=== PATIENT | female | born 1980 | race Two or more races ===

== ENCOUNTER 2017-01-15 14:18 | Emergency (ER) | payer MEDICAID ==
--- NOTE | 2017-01-20 21:28 | ER ---
ADMIT: 01/15/2017 RM/LOC: ER [facility] MR#: [id number] [place], [place] [id number] ROBERTS, FABIOLA [address] [place] [address] Emergency Room Report SEX: F AGE: 36 : 1980 DATE: 01/15/2017 CHIEF COMPLAINT: Cough, short of breath. HISTORY OF PRESENT ILLNESS: The patient is a 36-year-old female, who had some URI symptoms last week which are mostly resolved but she still has a dry cough and still feels short of breath. It is worse with exertion. She has had to use an albuterol inhaler in the past. She denies any chest pain, not having any fevers. No nausea or vomiting. No change in bowel or bladder function. PAST MEDICAL HISTORY: Unremarkable. MEDICATIONS: None. ALLERGIES: NONE. SOCIAL HISTORY: Denies smoking or drug use. Does use alcohol socially. PHYSICAL EXAMINATION: VITAL SIGNS: Blood pressure is 143/77, pulse 84, respirations 20, temp 98.6, sats 97% on room air. HEAD: Atraumatic. NECK: Supple. Posterior oropharynx is patent. No erythema. No exudates. HEART: Regular rate and rhythm. LUNGS: Very mild wheezes bilaterally. Decent air movement. ABDOMEN: The patient is morbidly obese. EXTREMITIES: The patient moves all extremities. No pedal edema. No calf tenderness. EMERGENCY DEPARTMENT COURSE: She did have some mild wheezes and we gave her a breathing treatment and her symptoms were better. Plan at this time is to get her albuterol MDI to use as needed for shortness of breath and cough as really only symptoms are her mild shortness of breath and wheezes. No other workup done at this time. She is to follow up with her primary care physician and return to the ER for any worsening symptoms. Shailesh Brannon MD/ pramod JOB #: [id number] CC: Shailesh Brannon MD, Attending Physician Koffi Zamora MD, Family Physician
== END 2017-01-15 16:54 | disposition home or self-care (01) ==
LOC: ER 14:18
DX: J40 Bronchitis, not specified as acute or chronic (principal)